=== PATIENT | male | born 1970 | race American Indian/Alaskan Native ===

== ENCOUNTER 2024-03-15 11:52 | Emergency (ER) | payer MEDICAID, SELFPAY ==
[2024-03-15 12:03] VITALS: BP 147/101; PULSE 87; RESP 18; TEMP 36.4; O2SAT 95; BMI 31.3
--- NOTE | 2024-03-15 12:15 | XR_ITS ---
Examination: Shoulder,3, 3 views Technique: Shoulder AP internal rotation, AP external rotation, Y view shoulder, 3 views Exam date and time :March 15, 2024 at 1220 hours INDICATIONS: Patient fell 4 days ago with injury to the shoulder, shoulder pain FINDINGS: Bone fragments project inferior to the bony glenoid fossa. Humerus and clavicle appear intact IMPRESSION: Recommend CT scan shoulder follow-up to exclude fractures off the bony glenoid fossa of the scapula
--- NOTE | 2024-03-15 12:15 | XR_ITS ---
Examination: Humerus 2 views right Technique: Humerus, AP lateral 2 views Date and time of exam: March 15, 2024 1220 hours INDICATIONS: Patient fell today with injury to the arm, arm pain FINDINGS: Bone densities project inferior to the bony glenoid fossa, the largest 20 mm These could be fractures off the bony glenoid fossa of the scapula Shaft of the humerus intact IMPRESSION: Possible chip fractures off the bony glenoid fossa of the scapula, recommend CT shoulder without contrast follow-up
[2024-03-15] MEDS: KETOROLAC INJ 30 MG/ML VIAL IM (12:59)
--- NOTE | 2024-03-15 13:00 | XR_ITS ---
Examination: CT right shoulder, without contrast. 2-D sagittal reconstructions. 2-D coronal reconstructions. 3-D reconstructions. Date and time of exam:March 15, 2024 1347 hours INDICATIONS: Patient fell 4 days ago with injury to the shoulder, shoulder pain CTDI: vol (mGy):13.4 DLP: (mGycm):344 Technique: Multiple 1.25 mm axial sections of the right shoulder have been obtained. 2-D sagittal and coronal reconstructions have been obtained. 3-D reconstructions have been obtained. Low dose protocols were performed. One or more of the following dose reduction techniques were used; automated exposure control, adjustment of the mA and/or KV according to patient size, use of iterative reconstruction technique. Findings: Multiple acute fracture fragments off the scapula, involving the anterior and posterior margins of the bony glenoid fossa and fracture fragments below the bony glenoid fossa,, coronal images 52 through 65 Humeral head neck and visualized shaft intact No AC joint separation Clavicle intact IMPRESSION: Multiple acute fracture fragments off the anterior and posterior margins of the lower bony glenoid fossa and fracture fragments off the scapula below the bony glenoid fossa as above
--- NOTE | 2024-03-15 14:14 | PD.EDUPEX ---
Upper Extremity Injury RME/HPI General Chief Complaint: Extremity Injury, Upper Stated Complaint: RIGHT ARM PAIN Time Seen by Provider: 03/15/24 11:55 Arrival date/time: 03/15/24 11:52 53-year-old male presents emerged department recently had a fall 5 days ago injuring his right shoulder there are no other associated symptoms or aggravating factors no other modifying factors, patient denies taking medication before coming to ER today Limitations: no limitations Related Data Home Medications ?Medication ?Instructions ?Recorded ?Confirmed Cyclobenzaprine * (FLEXERIL *) 10 mg PO Q8HR PRN PAIN #0 tabs 12/10/16 12/16/18 Trazodone * (DESYREL *) 300 mg PO HS #0 tabs 12/10/16 12/16/18 baclofen 5 mg tablet 5 mg PO BID 12/16/18 12/16/18 hydrocodone 10 mg-acetaminophen 1 tab PO Q6H PRN Pain 12/16/18 12/16/18 325 mg tablet ([place]) Previous Rx's ?Medication ?Instructions ?Recorded hydrocodone 5 mg-acetaminophen 325 1 tab PO BID PRN pain #10 tabs 03/15/24 mg tablet ibuprofen 800 mg tablet 800 mg PO TID PRN pain #30 tabs 03/15/24 Allergies Allergy/AdvReac Type Severity Reaction Status Date / Time lidocaine Allergy Severe RASH Verified 12/16/18 08:28 prilocaine Allergy Severe RASH Verified 12/16/18 08:28 prednisone Allergy Intermediate RASH Verified 12/16/18 08:28 Review of Systems Review of Systems Systems Reviewed: All systems reviewed, normal except as documented Constitutional Constitutional: Reports system reviewed and no additional complaints, except as documented, Denies fever(s) and Denies headache(s) Eyes Eyes: Reports system reviewed and no additional complaints, except as documented and Denies blurry vision ENT Ears, Nose, Mouth, and Throat: Reports system reviewed and no additional complaints, except as documented, Denies headache(s), Denies nasal congestion and Denies nasal discharge Cardiovascular Cardiovascular: Reports system reviewed and no additional complaints, except as documented, Denies chest pain and Denies dyspnea Respiratory Respiratory: Reports system reviewed and no additional complaints, except as documented, Denies chest congestion, Denies cough and Denies dyspnea Gastrointestinal Gastrointestinal: Reports system reviewed and no additional complaints, except as documented and Denies abdominal pain Musculoskeletal Musculoskeletal: Reports system reviewed and no additional complaints, except as documented, Reports arthralgias, Denies deformity, Denies numbness, Reports stiffness and Denies tingling Integumentary/Breasts Skin/Breast: Reports system reviewed and no additional complaints, except as documented and Denies rash Neurologic Neurologic: Reports system reviewed and no additional complaints, except as documented, Reports as per HPI, Denies headache(s), Denies numbness and Denies tingling Past Medical History Past Medical History CARDIAC: Negative Congestive Heart Failure RESPIRATORY: Negative Chronic Obstructive Pulmonary Disease (COPD) GASTROINTESTINAL: Positive Gastrointestinal Disorders and Diverticulitis GENITOURINARY: Negative Renal Disease ENDOCRINE: Negative Diabetes Mellitus Type 1 or Diabetes Mellitus Type 2 PSYCHO/SOCIAL: Positive Depression, Anxiety and Behavior Problems Social History SMOKING STATUS: Never smoker ED Exam General Limitations: Present no limitations General appearance: Present alert and in no apparent distress Head Head exam: Present atraumatic, normocephalic and normal inspection Eye Eye exam: Present normal appearance, PERRL and EOMI ENT ENT exam: Present normal exam, normal oropharynx and mucous membranes moist Neck Neck exam: Present normal inspection, full ROM and trachea midline Chest Chest inspection: Present normal inspection and symmetric chest wall rise Respiratory Respiratory exam: Present normal lung sounds bilaterally Cardiovascular Cardiovascular exam: Present regular rate, normal rhythm and normal heart sounds Abdominal Exam Abdominal exam: Present soft and normal bowel sounds Extremities Exam Extremities exam: Present normal inspection, full ROM, tenderness and normal capillary refill (right shoulder pain ) Back Exam Back exam: Present normal inspection and full ROM Neurological Exam Neurological exam: Present alert, oriented X3 and CN II-XII intact Psychiatric Psychiatric exam: Present normal affect and normal mood Skin Skin exam: Present warm, dry, intact and normal color Course Quality Measures none Orders Category Date Time Status sling [Splint / Immobilizer] STAT Care 03/15/24 14:[address] shoulder RT wo con Stat Exams 03/15/24 13:00 Completed XR humerus RT min 2V Stat Exams 03/15/24 12:15 Completed XR shoulder RT min 2V Stat Exams 03/15/24 12:15 Completed Ketorolac Inj [Toradol Inj] Med 03/15/24 12:15 Discontinued 30 mg IM X1 ONE Vital Signs Vital signs: Vital Signs Temperature 97.6 F 03/15/24 12:03 Pulse Rate 87 03/15/24 12:03 Respiratory Rate 18 03/15/24 12:03 Blood Pressure 147/101 H 03/15/24 12:03 Pulse Oximetry (%) 95 03/15/24 12:03 Oxygen Delivery Method Room Air 03/15/24 12:03 o2 sat 95% r/a wnl Extremity Injury MDM Narrative MDM Narrative:: 53-year-old male presents emerged department recently had a fall 5 days ago injuring his right shoulder there are no other associated symptoms or aggravating factors no other modifying factors, patient denies taking medication before coming to ER today On exam patient's pain right upper back and right shoulder region X-rays of the right shoulder and humerus per radiologist may have a fracture recommend CT scan CT scan obtained patient has fracture scapula and glenoid fossa Patient placed in sling discharged home with instructions follow-up with orthopedist soon as possible Patient data External records reviewed:: [facility] previous records Clinical information provided by:: patient Social determinants that could affect healthcare access:: none Patient has the following chronic illnesses:: None How is presenting disease/condition affected by chronic disease/condition?: no chronic disease Evaluation data The following diagnostics were reviewed and interpreted by me:: radiology exam(s) Lab and/or radiology exams considered but not ordered:: Radiology obtain Interpretation Summary: Viewed by me Medications / Prescriptions Medications or Prescriptions considered but not ordered:: Given Medication administrations:: Medication Administration History Discontinued Medications Ketorolac Tromethamine (Ketorolac Inj 30 Mg/Ml Vial) 30 mg IM X1 ONE Stop: 03/15/24 12:16 Last Admin: 03/15/24 12:59 Dose: 30 mg Documented By: MP Given Consultations Consultation(s) initiated? (list below): No Diagnosis Upper Extremity Injury Differential Diagnosis: other (Right shoulder pain) Most likely diagnosis given after review of the tests above:: Right shoulder fracture Admission Indicated Admission indicated?: not indicated Admission Request Was there a request for admission?: No Disposition Plan Disposition Plan: Discharge Discharge Attestation Discharge Attestation: The patient and all family members were given an opportunity to ask questions and understood the discharge instructions. Discharge instructions specifically effects, indications for sooner follow up or return to the emergency department, and the expected course of current diagnosis. Patient condition: Stable Discharge Plan Plan Patient Disposition: HOME (Self Care) Disposition Comment: Stable Prescriptions/Referrals Prescriptions/Med Rec: New ibuprofen 800 mg tablet 800 mg PO TID PRN (Reason: pain) Qty: 30 0RF hydrocodone-acetaminophen 5-325 mg tablet 1 tab PO BID MDD 10 PRN (Reason: pain) Qty: 10 0RF No Action Cyclobenzaprine * (FLEXERIL *) 10 MG tablet 10 mg PO Q8HR PRN (Reason: PAIN) Qty: 0 Trazodone * (DESYREL *) 150 MG tablet 300 mg PO HS Qty: 0 baclofen 5 mg Tablet 5 mg PO BID hydrocodone-acetaminophen [[place]] 10-325 mg Tablet 1 tab PO Q6H PRN (Reason: Pain) Referrals: Nomi Castaneda MD [Primary Care Provider] - In 1 week Problem List Clinical Impression: Fracture of glenoid fossa, Closed right scapular fracture Patient/Caregiver Discharge Instructions Education Materials: ED Fracture, Shoulder Additional Instructions: Please follow up with your primary care doctor in the next 24-48hrs for any worsening symptoms return here immediately Print Language: Cook Islander Stand Alone Forms: Nayana Award Info., Patient Portal Info Letter PA/PROVIDER CONTRACTING CONSULTANT Supervising Physician PA/TAHIR Supervising Physician: Dr Bravo
== END 2024-03-15 14:47 | disposition home or self-care (01) ==
PROVIDERS: Emergency Provider Emergency Medicine; PCP Family Medicine
DX: S42.141A Displaced fracture of glenoid cavity of scapula, right shoulder, initial encounter for closed fracture (principal); W19.XXXA Unspecified fall, initial encounter
CPT/HCPCS: 73030; 73060; 73200; 99284; A4565; J1885

== ENCOUNTER → 2024-06-22 | Outpatient (CLI) | payer MEDICAID, SELFPAY ==
--- NOTE | 2024-06-22 15:15 | XR_ITS ---
MRI shoulder, right, without contrast. Date and time: June 22, 2024 1545 hrs. Indications: Weight lifting fracture to the shoulder 4 months ago with persistent pain Technique: Multiple axial, sagittal and coronal sections of the shoulder have been obtained. Siemens high-resolution 1.5 Sofie MRI scanner is utilized. Axial fat-suppressed sections, TR 2350, TE 18 T2-weighted coronal fat-saturated images, TR 3500, TE 7100 T1-weighted coronal images, TR 500, TE 15 T2-weighted sagittal fat-saturated images, TR 3500, TE 57 T1-weighted sagittal sections, TR 504, TE 13. Findings: Suspicious for 15 mm full-thickness rotator cuff tear Subscapularis insertion is intact. Subscapularis bursa is evident. Long head of the biceps is in the bicipital groove. No definite tear of the biceps superior labral anchor is seen. Retraction of the musculotendinous junction of the rotator cuff is mild. Tendinosis pattern is moderate. Distance between the acromium and humeral head is 6.6 mm Atrophy of the supraspinatus muscle is mild. Atrophy of the infraspinatus muscle is not seen. Sagittal sections demonstrate a horizontal acromion. Acromioclavicular joint demonstrates moderate osteoarthritis. Osacromiale is not identified. Prominent anterior labral tears. Marrow edema lower bony glenoid fossa Occult fracture or area of avascular necrosis is not seen. Acromioclavicular joint separation is not visible. Defect in the posterolateral margin of the humeral head is not seen Impression: Recommend this patient return for MR shoulder arthrography followed by post intra-articular contrast images of the shoulder to confirm full-thickness rotator cuff defect Multiple anterior labral tears Marrow edema in the inferior bony glenoid fossa, please see the CT report March 15, 2024
== END | disposition home or self-care (01) ==
LOC: SMRI 14:12
PROVIDERS: PCP Physician Assistant; Referring Provider Physician Assistant; Visit Provider Physician Assistant
DX: S43.431A Superior glenoid labrum lesion of right shoulder, initial encounter (principal); X58.XXXA Exposure to other specified factors, initial encounter; M25.411 Effusion, right shoulder
CPT/HCPCS: 73221

== ENCOUNTER 2024-08-16 09:30 | Outpatient (RCR) | payer MEDICAID, SELFPAY ==
--- NOTE | 2024-08-03 13:47 | PT.OIERPT ---
PT OP Initial Eval Patient Information Outpatient Physical Therapy Treatment Date: 08/03/24 Visit Reasons: Rotator cuff repair Medical Diagnosis: Right Scapula Avulsion Fracture; Right Rotator Cuff Injury Treatment Dx #1: Right Shoulder Pain Treatment Dx #2: Right Shoulder Mobility Deficits Start of Care: 08/03/24 Date of Onset: 5 months ago Smoking Status Smoking Status: Never smoker Initial Assessment Subjective: Pt is a 53 y/o female reports of right shoulder pain (10) since his fall ~ 5 months ago. Pt mentioned his shoulder blade is fracture and there's a known rotator cuff tear. Pt is unsure which rotator cuff tendon is torn. Pt has limitation with overhead motions, lifting, chores, self care, cooking, cleaning, and performing recreational activities. Objective: Right Shoulder PROM Flexion: 90 deg with pain Abduction: 70 deg with pain External Rotation: 20 deg with pain Internal Rotation: unable due to pain Right Shoulder AROM Flexion: 50 deg Abduction: 45 deg ER and IR: unable due to pain Right Shoulder MMTs: grossly 2-/5 Right Scapula MMTs: grossly 2-/5 Assessment: Pt demonstrate right shoulder mobility and strength deficits s/p fall leading ot difficulty with ADLs. Pt will attempt physical therapy if pain persist Pt will be refer back to provider for further consultation. 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 Goals 1) Increase right shoulder PROM WFL in 6 wks to prevent frozen shoulder 2) Increase right shoulder AROM WFL in 6 wks to be able to perform overhead motions 3) Increase right shoulder MMTs: grossly 3+/5 in 6 wks to be able to perform lifting activities 4) Increase right scapula MMTs grossly to 3+/5 in 6 wks to be able to perform self care activities 5) Indep with HEP Treatment Plan 1) Manual Therapy 2) Therapeutic Activities 3) Therapeutic Exercises 4) Modalities (ice, heat) Frequency and Duration: 2 x wk for 6 wks Certification Dates: 08/03/24 to 11/02/24 Procedure Charges OP PT Eval Mod Complex 30 minutes: Yes
--- NOTE | 2024-08-08 08:25 | PT.ODAYNRPT ---
PT Outpatient Daily Note OP Daily Note Outpatient Physical Therapy Treatment Date: 08/08/24 Visit Reasons: Rotator cuff repair Subjective: Pt was helping his friend lift something yesterday and heard a pop in the shoulder. Pt now feels better today and can move his arm more with less pain. Objective: Please see flow chart for list of ther ex performed Assessment: patient exhibit shoulder flexion and scaption AAROM improvement with less pain reported today Plan: Continue with PT Length of Time (minutes) of Treatment: 30 Minutes Procedure Charges Therapeutic Exercise 30 minutes: Yes
--- NOTE | 2024-08-11 08:22 | PT.ODAYNRPT ---
PT Outpatient Daily Note OP Daily Note Outpatient Physical Therapy Treatment Date: 08/11/24 Visit Reasons: Rotator cuff repair Subjective: Pt's shoulder feels tight. Pt mentioned he has MRI results and will bring in next session to review. Pt still has pain and difficulty moving the arms. Objective: Please see flow chart for list of ther ex performed Assessment: difficulty completing sci fit due to pain, however, able to complete instructed minutes. Pt continues to exhibit improvement with scaption and flexion AAROM Plan: Continue with PT Length of Time (minutes) of Treatment: 30 Minutes Procedure Charges Therapeutic Exercise 30 minutes: Yes
--- NOTE | 2024-08-16 10:23 | PT.ODAYNRPT ---
PT Outpatient Daily Note OP Daily Note Outpatient Physical Therapy Treatment Date: 08/16/24 Visit Reasons: Rotator cuff repair Subjective: Pt's shoulder catches at a certain point of his arm movement leading to difficulty with overhead motions. Objective: Please see flow chart for list of ther ex performed Assessment: patient continues to exhibit pain past shoulder height of 100 deg. Pt encouraged to continue wall slide, pendulums, and isometric at home to prevent frozen shoulder Plan: Continue with PT Length of Time (minutes) of Treatment: 30 Minutes Procedure Charges Therapeutic Exercise 30 minutes: Yes
== END 2024-08-23 23:59 | disposition home or self-care (01) ==
LOC: CPTX 09:30
PROVIDERS: PCP Physician Assistant; Referring Provider Physician Assistant; Visit Provider Physician Assistant
DX: M25.511 Pain in right shoulder (principal); S46.011D Strain of muscle(s) and tendon(s) of the rotator cuff of right shoulder, subsequent encounter; S42.101D Fracture of unspecified part of scapula, right shoulder, subsequent encounter for fracture with routine healing; W19.XXXD Unspecified fall, subsequent encounter
CPT/HCPCS: 97110; 97162

== ENCOUNTER 2024-09-22 09:00 | Outpatient (RCR) | payer MEDICAID, SELFPAY ==
--- NOTE | 2024-08-28 10:30 | PT.ODAYNRPT ---
PT Outpatient Daily Note OP Daily Note Outpatient Physical Therapy Treatment Date: 08/28/24 Visit Reasons: rotator cuff repair Subjective: Pt's shoulder is hurting more underneath the arm pit. Pt denies of increase activities at home. Objective: Please see flow chart for list of ther ex performed Assessment: tolerate exercises with minimal pain; post ice helped with pain Plan: Continue with PT Length of Time (minutes) of Treatment: 30 Minutes Procedure Charges Therapeutic Exercise 30 minutes: Yes
--- NOTE | 2024-08-30 08:46 | PT.ODAYNRPT ---
PT Outpatient Daily Note OP Daily Note Outpatient Physical Therapy Treatment Date: 08/30/24 Visit Reasons: rotator cuff repair Subjective: Pt wants ice today after therapy session. Ice seems to help the pain and armpit swelling. Pt continues to have pain with arm movement with a catching feeling Objective: Please see flow chart for list of ther ex performed Assessment: added YTB to shoulder 3 way with good tolerance. Post ice helped with pain and soreness Plan: Continue with PT Length of Time (minutes) of Treatment: 30 Minutes Procedure Charges Therapeutic Exercise 30 minutes: Yes
--- NOTE | 2024-09-05 09:37 | PT.ODAYNRPT ---
PT Outpatient Daily Note OP Daily Note Outpatient Physical Therapy Treatment Date: 09/05/24 Visit Reasons: rotator cuff repair Subjective: Pt reports he had a near fall on Wednesday, he tripped and caught himself with his both arms. Pt mentioned that it was really painful that day but still has 5/10 pain today, which was his pain level even before he tripped. Objective: Please see flow sheet for ther ex list. Assessment: Pt presents in clinicn with 5/10 pain, AROM into flexion ~90 seg as observed, no loss of motion ROM progressing. Regressed interventions to accommodate reported pain and soreness. Plan: Assess response to treatment. Length of Time (minutes) of Treatment: 30 Minutes Procedure Charges Therapeutic Exercise 30 minutes: Yes
--- NOTE | 2024-09-20 09:43 | PT.ODAYNRPT ---
PT Outpatient Daily Note OP Daily Note Outpatient Physical Therapy Treatment Date: 09/20/24 Visit Reasons: rotator cuff repair Subjective: Pt's shoulder is not much better and continues to have a pinch with overhead movement. Pt mention he's unable to move arm past shoulder height without help. Pt will be seeing surgeon tomorrow for further consultation. Objective: Please see flow chart for list of ther ex Assessment: minimal progress with shoulder AROM due to pain. post ice helped with pain Plan: Continue with PT Length of Time (minutes) of Treatment: 30 Minutes Procedure Charges Therapeutic Exercise 30 minutes: Yes
--- NOTE | 2024-09-22 08:48 | PT.ODS1RPT ---
PT OP Progress/Discharge Note Date of Service: 09/22/24 Progress Note/DC Note Progress Note/Discharge Note: DC Note Patient Information Visit Reasons: rotator cuff repair Medical Diagnosis: Right Shoulder Pain Treatment Dx #1: Right Shoulder Pain Treatment Dx #2: Right Shoulder Mobility Deficits Service Discharge Date: 09/22/24 Status Subjective: Pt's shoulder pain is not much better. Pt recently seen specialist and plans to refer him out to sport orthopedic surgeon. Pt still has limitation with lifting, overhead motions, chores, self care, cooking, cleaning, and performing recreational activities. Objective: Right Shoulder AROM Flexion: 90 deg Abduction: 90 deg ER and IR: unable Right Shoulder PROM: all motions are WFL Right Shoulder MMTs: grossly 3-/5 Right Scapula MMTs: grossly 3-/5 Assessment: Pt demonstrate right shoulder mobility deficits, weakness, and pain leading to difficulty with ADLs. Pt has plateau towards physical therapy goals and will no longer benefit from physical therapy. Pt was instructed on HEP last session and educated to continue exercises to maintain overall mobility. Pt performed all exercises safely, thank you for your referrals. Plan: D/C home with HEP and follow up with MD Follow up with sports orthopedic surgeon Procedure Charges Therapeutic Exercise 30 minutes: Yes
== END 2024-09-23 23:59 | disposition home or self-care (01) ==
LOC: CPTX 09:00
PROVIDERS: PCP Physician Assistant; Referring Provider Physician Assistant; Visit Provider Physician Assistant
DX: M25.511 Pain in right shoulder (principal); S42.101D Fracture of unspecified part of scapula, right shoulder, subsequent encounter for fracture with routine healing; W19.XXXD Unspecified fall, subsequent encounter
CPT/HCPCS: 97110